=== PATIENT | male | born 1955 | race Two or more races ===

== ENCOUNTER 2019-10-29 07:04 | Day surgery (SDC) | payer BC ==
[2019-10-24 12:55] LABS: BASOPHILS % (AUTO) 0.7 % (0-1); EOSINOPHILS # (AUTO) 0.1 X10'3 (0-0.9); EOSINOPHILS % (AUTO) 1.2 % (0-6); LYMPHOCYTES # (AUTO) 1.8 X10'3 (1.1-4.8); LYMPHOCYTES % (AUTO) 32.6 % (21-51); MEAN CORPUSCULAR HGB CONC 33.5 g/dL (33.0-36.5); MEAN CORPUSCULAR VOLUME 83.5 FL (78-98); MEAN PLATELET VOLUME 8.2 FL (7.4-10.4); MONOCYTES # (AUTO) 0.5 X10'3 (0-0.9); MONOCYTES % (AUTO) 9.3 % (2-12); NEUTROPHILS # (AUTO) 3.1 X10'3 (1.8-7.7); NEUTROPHILS % (AUTO) 56.2 % (42-75); PRE OP HEMOGLOBIN 15.1 g/dL (14.0-17.9); PRE OP PLATELET COUNT 238 X10'3 (140-440); RED BLOOD COUNT 5.39 X10'6 (4.70-6.10); RED CELL DISTRIBUTION WIDTH 13.8 % (11.5-14.5)
[2019-10-24 12:56] LABS: CLARITY,URINE CLOUDY (Clear); COLOR,URINE YELLOW (Yellow); GLUCOSE, URINE NEGATIVE (Neg); KETONES,URINE 15 mg/dl (Neg); LEUKOCYTE ESTERASE ,URINE NEGATIVE (Neg); NITRITES, URINE NEGATIVE (Neg); OCCULT BLOOD,URINE TRACE-INTACT (Neg); PH,URINE 7.5 (4.8-8.0); PROTEIN,URINE NEGATIVE (Neg)
[2019-10-24 13:02] LABS: UA COLLECTION TYPE NON-SPECIFIED
[2019-10-24 13:03] LABS: AMORPHOUS URATES 3+; BACTERIA,URINE NONE SEEN /HPF (Neg); MUCUS STRANDS FEW /LPF (Neg); RBC,URINE 0-2 /HPF (0-2); SQUAMOUS EPITHELIAL CELL,UR NONE SEEN /LPF (FEW); WBC,URINE 0-4 /HPF (0-4)
[2019-10-24 13:05] LABS: ALBUMIN 3.9 G/DL (3.4-5.0); ALKALINE PHOSPHATASE 75 IU/L (46-116); BLOOD UREA NITROGEN 16 MG/DL (7-18); BUN/CREATININE RATIO 23.9 (5.4-32.0); CALCIUM 9.1 MG/DL (8.5-10.1); CHLORIDE 101 MMOL/L (99-107); CREATININE 0.67 MG/DL (0.60-1.10); PRE OP ALT 14 U/L (30-65); PRE OP ANION GAP 6 (8-16); PRE OP AST 15 U/L (10-37); PRE OP BILIRUB, TOTAL 0.7 MG/DL (0.0-1.0); PRE OP GLUCOSE 86 MG/DL (70-104); PRE OP POTASSIUM 3.4 MMOL/L (3.4-5.1); PRE OP SODIUM 138 MMOL/L (135-145); eGFR > 90 ML/MIN
[~2019-10-29] VITALS: Ht 170.2 cm; Wt 67.3 kg
[2019-10-29] VITALS (19 sets, daily range): BP systolic 117–172; BP diastolic 69–103
[~2019-10-29 07:04] MED LIST: AMLO5TAB16 PO; LOSA100T57 PO; ceFAZolin 2gm in dextrose, iso 50 ML IV ONE; famotidine 20mg tablet PO ONE; ringers solution, lacted 1,000 ML IV SCH
[2019-10-29] MEDS ORDERED: famotidine/PF 10 mg/ml inj IV ONE (08:40)
[2019-10-29] MEDS ORDERED: BUPIVAcaine/PF 2.5 mg/ml (0.25%) 30ml vial ONE (10:38)
[2019-10-29] MEDS ORDERED: LIDOcaine 1% 30ml preserv. free vial ONE (11:19)
[2019-10-29] MEDS ORDERED: ringers solution, lacted 1,000 ML IV SCH (11:21)
[2019-10-29] MEDS ORDERED: HYDROmorphone inj. 0.5 MG/0.5 ML DISP.SYRIN IV PRN (11:25)
[2019-10-29] MEDS ORDERED: morphine 2 MG/ML inj. syringe IV PRN (11:25)
[2019-10-29] MEDS ORDERED: ondansetron/PF 4mg/2ml inj IV PRN ×2 (11:25→14:40)
[2019-10-29] MEDS ORDERED: fentaNYL/PF 50MCG/1 ML 2ML syringe ONE (11:51)
[2019-10-29] MEDS ORDERED: midazolam 2 mg/2 ml injection ONE (11:52)
[2019-10-29] MEDS ORDERED: propofol inj 20 ML IV ONE ×3 (12:07)
--- NOTE | 2019-10-29 12:45 | NUR ---
Received from OR via BED, accompanied by Anesthesiologist TESFAYE and report given by Anesthesiolgist. PT SLEEPY, OXYGENATING WELL ON 10 LPM O2 VIA MASK, NO RESP DISTRESS NOTED. PT DENIES NAUSEA, C/O MOD/SEVERE ABD PAIN. MEDICATED PRN SEE EMAR. G TUBE TO ABD, DSG CDI. SCDS ON. VSS.
--- NOTE | 2019-10-29 14:00 | NUR ---
Report called to receiving nurse. Transferred via BED Belongings WITH PT, 1 BAG OF CLOTHING AND GLASSES. PAIN LEVEL DECREASING AFTER MEDS GIVEN IN PACU, VSS. GLYCERINE SWABS USED FOR ORAL HYGIENE AND MOISTURE. TRANSFERRED TO TELE FLOOR IN STABLE CONDITION. PT UPDATED ON POSTOP CONDITION, WILL BE AVAILABLE VIA PHONE TO HELP WITH COMMUNICATION ISSUES. Special Issues communicated to receiving nurse.
[2019-10-29] MEDS ORDERED: potassium CL 20mEq in D5-1/2NS 1,000 ML IV SCH (14:39)
[2019-10-29] MEDS ORDERED: HYDROcodone/acetaminophen 10/325mg tab PO PRN (14:40)
[2019-10-29] MEDS: ringers solution, lacted 1,000 ML IV SCH (15:35)
[2019-10-29] MEDS ORDERED: ceFAZolin 1GM/D5W- ADD-VANTAGE 50 ML IV SCH (16:00)
--- NOTE | 2019-10-29 16:06 | NUR ---
TF Consult: Pt admit s/p gastrostomy tube placement for main nutrition intake. Hx oropharyngeal muscular dystrophy, dysphagia, silent aspiration, wt loss, blindness r/t eyelid complications, and current prostate CA. 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 Hematology, electrolyte, and ALB all WNL at this time. Continuous EN recs below; will monitor for TF tolerance, signs of refeeding, and EN adjustments as medically indicated. Rec: 1. TF per MD via PEG using Jevity 1.2 at 60ml/hr goal; to provide 1440ml fluid, 1166ml free water, 1728kcals, and 80g protein. Initiate at 20ml/hr and advance 20ml Q8 to goal as tolerated. 2. additional water flush 175ml Q6; monitor for additional hydration needs pending sodium trends; Na 138 at this time 3. monitor for signs of refeeding syndrome 4. PALB Q /; daily wts 5. routine bowel care 6. IF to have continues PEG feeds at home recommend continuing current EN recs; monitor for home recs if to change to bolus per pt/family preferences Addendum: 10/29/19 at [address] Amended: Links added.
--- NOTE | 2019-10-29 18:00 | NUR ---
orientee documentation: I have reviewed and agree with all interventions, assessments performed and documented by Mike Vazquez RN.
--- NOTE | 2019-10-29 18:00 | NUR ---
Problems reprioritized. Patient report given, questions answered & plan of care reviewed with Gloria YORK.
--- NOTE | 2019-10-29 18:09 | NUR ---
Problems reprioritized. Patient report given, questions answered & plan of care reviewed with Gloria YORK.
--- NOTE | 2019-10-29 18:19 | NUR ---
Problems reprioritized. Patient report given, questions answered & plan of care reviewed with Jihan YORK.
[2019-10-29] MEDS ORDERED: losartan 50mg tablet PEG SCH (21:00)
[2019-10-30] MEDS: ringers solution, lacted 1,000 ML IV SCH ×3 (01:35→12:55)
[2019-10-30 03:00] VITALS: BP 149/70
[2019-10-30] MEDS: HYDROcodone/acetaminophen 7.5MG/325MG per 15ml UD CUP PEG PRN ×2 (05:09→12:38)
[2019-10-30 05:20] LABS: PREALBUMIN 15.8 MG/DL (19-36)
[2019-10-30 06:00] VITALS: BP 155/85
--- NOTE | 2019-10-30 06:57 | NUR ---
Patient in room PCU 3026. I have received report from JAYLEN Castro and had the opportunity to ask questions and assume patient care.
[2019-10-30] MEDS ORDERED: amLODIPine 5mg tablet PEG SCH (08:00)
--- NOTE | 2019-10-30 10:29 | NUR ---
Nutrition consult "teaching family home tube feeding administration": RN reports pt sister to control continuous PEG feeds at home. RD provided written home EN recs, placed recs in pt chart, and d/w both RN and CM since [facility] [facility] RD will be providing home EN ed. Pt TF at 20ml/hr to advance today per protocol; only PALB taken w/ no electrolytes today. RD d/w RN regarding new labs to ensure pt EN tolerance and no signs of refeeding in order to optimize EN recs. Will continue to monitor. TF Consult: Pt admit s/p gastrostomy tube placement for main nutrition intake. Hx oropharyngeal muscular dystrophy, dysphagia, silent aspiration, wt loss, blindness r/t eyelid complications, and current prostate CA. 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 Hematology, electrolyte, and ALB all WNL at this time. Continuous EN recs below; will monitor for TF tolerance, signs of refeeding, and EN adjustments as medically indicated. Rec: 1. TF per MD via PEG using Jevity 1.2 at 60ml/hr goal; to provide 1440ml fluid, 1166ml free water, 1728kcals, and 80g protein. Initiate at 20ml/hr and advance 20ml Q8 to goal as tolerated. 2. additional water flush 175ml Q6; monitor for additional hydration needs pending sodium trends; Na 138 at this time 3. monitor for signs of refeeding syndrome 4. PALB Q M/; daily wts 5. routine bowel group home PEG TUBE FEED RECS 1. Continues PEG tube feeds using Jevity 1.2 or equivalent at 60ml/hr goal; to provide 1440ml fluid, 1166ml free water, 1728kcals, and 80g protein. 2. additional free water 175ml Q6 3. outpatient RD to titrate EN based on pt protein, kcal, and hydration needs Addendum: 10/30/19 at [address] Amended: Links added.
[2019-10-30 11:00] VITALS: BP 103/62
[2019-10-30 11:44] LABS: ALANINE AMINOTRANSFERASE 13 U/L (12-78); ALBUMIN 3.2 G/DL (3.4-5.0); ALBUMIN/GLOBULIN RATIO 0.9 (1.1-1.5); ALKALINE PHOSPHATASE 70 IU/L (46-116); ANION GAP 8 (8-16); ASPARTATE AMINO TRANSFERASE 16 U/L (10-37); BILIRUBIN,TOTAL 1.1 MG/DL (0.1-1.0); BLOOD UREA NITROGEN 11 MG/DL (7-18); BUN/CREATININE RATIO 14.9 (5.4-32.0); CALCIUM 8.6 MG/DL (8.5-10.1); CHLORIDE 101 MMOL/L (99-107); CREATININE 0.74 MG/DL (0.60-1.10); GLUCOSE 114 MG/DL (70-104); POTASSIUM 3.6 MMOL/L (3.5-5.1); SODIUM 138 MMOL/L (135-145); TOTAL CARBON DIOXIDE 29.3 MMOL/L (24-32); TOTAL PROTEIN 6.9 G/DL (6.4-8.2); eGFR > 90 ML/MIN
--- NOTE | 2019-10-30 12:48 | NUR ---
Pt tolerating Feed tube well. Residual check less 10ml. Increased rate to 60ml/hr.
--- NOTE | 2019-10-30 15:17 | NUR ---
Pt D/C'd home per Dr Dobbs. No new medication orders. education on tube feed will be provided on outpatient setting. Discharge instructions given to pt. IV removed with cannula intact. PEG tube flushed and secured. Pt was escorted to main lobby on w/c. Left the hospital via private vehicle accompanied by family member.
== END 2019-10-30 15:04 | disposition home or self-care (01) ==
LOC: PAS 07:04 → PCU 3S 15:21 → PAS 10-30 15:04
PROVIDERS: ATTEND Surgery
DX: G71.09 Other specified muscular dystrophies (principal); I10 Essential (primary) hypertension; F32.9 Major depressive disorder, single episode, unspecified; K21.9 Gastro-esophageal reflux disease without esophagitis; Z11.59 Encounter for screening for other viral diseases; Z79.899 Other long term (current) drug therapy; Z98.890 Other specified postprocedural states; Z85.46 Personal history of malignant neoplasm of prostate
CPT/HCPCS: 36415; 43830; 80053; 81001; 82948; 84134; 85025; 87081; 93005; J2001; J2250; J2704; J3010; J3490; U0003; A4215; A6402; B4087; G0378; J7120